=== PATIENT | female | born 1975 | race African-American/Black ===

== ENCOUNTER 2023-10-22 11:51 | Emergency (ER) | payer BC ==
[2023-10-22 12:03] VITALS: BP 145/80; PULSE 102; RESP 20; TEMP 97.8; BMI 41.1
[2023-10-22 13:43] LABS: BASO % 0.4 % (0-2.0); EOS % 0.3 % (0-4.5); HEMATOCRIT 38.8 % (32.4-45.2); HEMOGLOBIN 12.6 GM/dL (10.7-15.3); LYMPH % 13.5 % (8-40); MCH 23.5 pg (25.7-33.7); MCHC 32.4 g/dl (32.0-36.0); MEAN CELL VOLUME 72.5 fl (80-96); MEAN PLT VOLUME 7.6 fl (7.5-11.1); MONO % 4.2 % (3.8-10.2); NEUT % 81.6 % (42.8-82.8); PLATELET COUNT 486 10^3/uL (134-434); RBC 5.35 M/mm3 (3.60-5.2); RDW 14.6 % (11.6-15.6); WHITE BLOOD COUNT 7.4 K/mm3 (4.0-10.0)
[2023-10-22 14:03] LABS: CHLORIDE 103 mmol/L (98-107); POTASSIUM 3.3 mmol/L (3.5-5.1); SODIUM 139 mmol/L (136-145)
[2023-10-22 14:05] LABS: ANION GAP 7 mmol/L (4-13); BLOOD UREA NITROGEN 6.5 mg/dL (7-18); CALCIUM 9.7 mg/dL (8.5-10.1); CO2 30 mmol/L (21-32)
[2023-10-22 14:06] LABS: ALBUMIN 3.6 g/dl (3.4-5.0); GLUCOSE,RANDOM 122 mg/dL (74-106)
[2023-10-22 14:08] LABS: SGOT/AST 20 U/L (15-37); SGPT/ALT 30 U/L (13-61)
[2023-10-22 14:10] LABS: TOT PROT 8.1 g/dl (6.4-8.2)
[2023-10-22 14:11] LABS: ALK PHOS 91 U/L (45-117)
[2023-10-22 14:14] LABS: BILIRUBIN,TOTAL 0.5 mg/dL (0.2-1)
[2023-10-22 14:22] LABS: CREATININE 0.8 mg/dL (0.55-1.3)
[2023-10-22] MEDS ORDERED: DIPHTH,PERTUSS(ACELL),TET 0.5 ML DISP.SYRIN IM ONE (17:01)
== END 2023-10-22 17:03 | disposition home or self-care (01) ==
LOC: JER 11:51
DX: R42 Dizziness and giddiness (principal); R61 Generalized hyperhidrosis; R05.9 Cough, unspecified; R09.81 Nasal congestion; R11.0 Nausea; Z20.822 Contact with and (suspected) exposure to COVID-19
CPT/HCPCS: 0241U-QW; 36415; 80053; 82962; 84702; 85025; 93005; 93010; 99284-25